=== PATIENT | female | born 1985 | race Caucasian/White ===

== ENCOUNTER 2017-03-04 17:14 | Emergency (ER) | payer SELFPAY ==
[2017-03-04 17:20] VITALS: BP 138/96; BMI 39.1
[2017-03-04] MEDS ORDERED: TORADOL 60 MG VIAL IM ONE (18:23)
--- NOTE | 2017-03-04 18:23 | DR.GENAD ---
HPI - PCP Primary Care Physician: kelli - Complaint/Symptoms Chief Complaint:: patient stated she has been having bottom right tooth ache that has her head hurting. - Source History Provided: Patient - Mode of Arrival Mode of Arrival: Ambulatory - Timing Onset of Chief Complaint: 03/01/17 PMH - PMH Past Medical History: Yes Past Medical History: Hypertension Past Surgical History: Yes Surgical History: , Tonsillectomy - Family History History of Family Medical Conditions: Yes Family Medical History: Diabetes Mellitus, Cancer, [place], Hypertension - Social History Does patient currently use any type of tobacco product: Yes Have you used tobacco products in the last 12 months: Yes Type of Tobacco Use: None How many years tobacco product used: 15 Does any household member use tobacco: Yes Alcohol Use: None Do you use any recreational Drugs:: No Lives With: Family Lives Where: Home - infectious screening In the last 2 months have you had wt loss of >10#?: NO Have you had fever, night sweats or hemotysis?: No Have you traveled outside the country in the last 6 months?: No Isolation: Standard ROS - Review of Systems Eyes: No Symptoms Reported ENTM: See HPI, Loose Teeth Respiratoy: No Symptoms Reported Cardiovascular: No Symptoms Reported Gastrointestinal/Abdominal: No Symptoms Reported Genitourinary: No Symptoms Reported Neurological: No Symptoms Reported Musculoskeletal: No Symptoms Reported Integumentary: No Symptoms Reported Hematologic/Lymphatic: No Symptoms Reported Endocrine: No Symptoms Reported Psychiatric: No Symptoms Reported All Other Systems: Reviewed and Negative PE - Vital Signs Vitals: Temperature 98.6 F Pulse Rate 90 Respiratory Rate 16 Blood Pressure [Left Arm] 127/63 Blood Pressure 138/96 O2 Sat by Pulse Oximetry 100 - General Limitations: No Limitations General Appearance: Alert, In No Apparent Distress - Head Head Exam: Normal Inspection, Atraumatic - Eyes Eye exam: Normal Appearance, PERRL, EOMI - ENT ENT Exam: Normal Exam External Ear Exam: Normal External Inspection TM/Canal Exam: Bilateral Normal Nose Exam: Normal Nose Exam Mouth Exam: Other (Tooth pain #30, cavity) Throat Exam: Normal Inspection - Neck Neck Exam: Normal Inspection, Full ROM - Chest Chest Inspection: Normal Inspection, Symmetric Chest Wall Rise - Respiratory Respiratory Exam: Normal Lung Sounds Bilat Respiratory Exam: Bilateral Clear to Auscultation - Cardiovascular Cardiovascular Exam: Regular Rate, Normal Rhythm - Abdominal Exam Abdominal Exam: Normal Inspection, Normal Bowel Sounds Abdominal Tenderness: negative: RUQ, RLQ, LUQ, LLQ, Epigastrium, Suprapubic, Diffuse, Mild, Moderate, Severe, Other - Extremities Extremities Exam: Normal Inspection - Back Back Exam: Normal Inspection - Neurologic Neurological Exam: Alert, Oriented X3, CN II-XII Intact - Psychiatric Psychiatric Exam: Normal Affect, Normal Mood - Skin Skin Exam: Warm, Dry, Intact - Diagnosis Discharge Problem: Tooth ache - Discharge Plan Condition: Stable - Follow ups/Referrals Follow ups/Referrals: NFD,None [Primary Care Provider] - 3 days - Instructions
[2017-03-04] MEDS ORDERED: TORADOL 60 MG VIAL ONE (18:25)
== END 2017-03-04 18:41 | disposition home or self-care (01) ==
LOC: ER 17:26
DX: K08.89 Other specified disorders of teeth and supporting structures (principal)
CPT/HCPCS: 96372; 99282; J1885

== ENCOUNTER 2017-06-08 16:54 | Emergency (ER) | payer SELFPAY ==
[2017-06-08 17:00] VITALS: BP 143/61; BMI 40.8
--- NOTE | 2017-06-08 18:33 | DR.GENAD ---
HPI - PCP Primary Care Physician: NFD - Complaint/Symptoms Chief Complaint Doctors Comments: [place] patient while in [place] went to the ED was found to be , estimated gestation age of 5 wks at the time. Patient reports that on yesterday started bleeding and today pasted a large blood clot. LMP 12/3-10/03 Normal. She is a a 0.5ppd smoker, denies alcohol. Patient has no OB physician Chief Complaint:: "I found out that I was last week. They thought that I was around 5 weeks then. However they think that I lost it due to my hormone level. Yesterday I started bleeding and today I passed a big blood clot but I still have a lot of pressure." - Source History Provided: Patient - Mode of Arrival Mode of Arrival: Ambulatory - Timing Onset of Chief Complaint: 06/07/17 PMH - PMH Past Medical History: Yes Past Medical History: Hypertension Past Surgical History: Yes Surgical History: , Tonsillectomy - Family History History of Family Medical Conditions: Yes Family Medical History: Diabetes Mellitus, Cancer, [place], Hypertension - Social History Does patient currently use any type of tobacco product: Yes Have you used tobacco products in the last 12 months: Yes Type of Tobacco Use: Cigarettes Does any household member use tobacco: Yes Alcohol Use: None Do you use any recreational Drugs:: No Lives With: Family Lives Where: Home - infectious screening In the last 2 months have you had wt loss of >10#?: NO Have you had fever, night sweats or hemotysis?: No Have you traveled outside the country in the last 6 months?: No Isolation: Standard ROS - Review of Systems Eyes: No Symptoms Reported ENTM: No Symptoms Reported Respiratoy: No Symptoms Reported Cardiovascular: No Symptoms Reported Gastrointestinal/Abdominal: No Symptoms Reported Genitourinary: No Symptoms Reported Neurological: No Symptoms Reported Musculoskeletal: No Symptoms Reported Integumentary: No Symptoms Reported Hematologic/Lymphatic: No Symptoms Reported Endocrine: No Symptoms Reported Psychiatric: No Symptoms Reported All Other Systems: Reviewed and Negative PE - Vital Signs Vitals: Temperature 97.7 F Pulse Rate 85 Respiratory Rate 20 Blood Pressure [Left Arm] 127/63 Blood Pressure 143/61 O2 Sat by Pulse Oximetry 100 - General Limitations: No Limitations General Appearance: In No Apparent Distress - Head Head Exam: Normal Inspection, Atraumatic - Eyes Eye exam: Normal Appearance, PERRL, EOMI - ENT ENT Exam: Normal Exam External Ear Exam: Normal External Inspection TM/Canal Exam: Bilateral Normal Nose Exam: Normal Nose Exam Mouth Exam: Normal Inspection Throat Exam: Normal Inspection - Neck Neck Exam: Normal Inspection, Full ROM - Chest Chest Inspection: Normal Inspection - Respiratory Respiratory Exam: Normal Lung Sounds Bilat Respiratory Exam: Bilateral Clear to Auscultation - Cardiovascular Cardiovascular Exam: Regular Rate, Normal Rhythm - Abdominal Exam Abdominal Exam: Normal Inspection, Normal Bowel Sounds Abdominal Tenderness: negative: RUQ, RLQ, LUQ, LLQ, Epigastrium, Suprapubic, Diffuse, Mild, Moderate, Severe, Other - Extremities Extremities Exam: Normal Inspection, Full ROM - Back Back Exam: Normal Inspection, Full ROM - Neurologic Neurological Exam: Alert, Oriented X3, CN II-XII Intact - Psychiatric Psychiatric Exam: Normal Affect, Normal Mood - Skin Skin Exam: Warm, Dry, Intact Course - Reevaluation 1st: Unchanged ROR - Labs Reviewed Laboratory Results Reviewed?: Yes (UA: 5+bld,2+leuk,wbc 5-10, RBC 15-25; Negative test) Result Diagrams: 06/08/17 18:41 06/08/17 18:41 Laboratory: WBC 9.5 X10^3/uL (3.6-10.0) 18 18:41 RBC 4.72 X10^6/uL (3.5-5.4) 18 18:41 Hgb 12.9 g/dL (12.0-16.0) 06/08/17 18:41 Hct 38.6 % (36.0-47.0) 06/08/17 18:41 MCV 81.8 fL (80.0-100.0) 06/08/17 18:41 MCH 27.4 pg (27.0-34.0) 06/08/17 18:41 MCHC 33.5 g/dL (33.0-35.0) 06/08/17 18:41 RDW 16.7 % (11.6-16.5) H 06/08/17 18:41 Plt Count 514 X10^3/uL (150.0-450.0) H 06/08/17 18:41 MPV 6.6 fL (7.4-11.0) L 06/08/17 18:41 Neut % 67.6 % (42.0-75.0) 06/08/17 18:41 Lymph % 27.8 % (21.0-51.0) 06/08/17 18:41 [place] % 2.9 % (0.0-13.0) 06/08/17 18:41 Eos % 1.1 % (0.9-2.9) 06/08/17 18:41 Baso % 0.6 % (0.2-1.0) 06/08/17 18:41 Neut # 6.4 x10^3/uL (2.2-4.8) H 06/08/17 18:41 Lymph # 2.6 X10^3/uL (1.3-2.9) 06/08/17 18:41 [place] # 0.3 x10^3/uL (0.3-0.8) 06/08/17 18:41 Eos # 0.1 x10^3/uL (0.0-0.2) 06/08/17 18:41 Baso # 0.1 X10^3/uL (0.0-0.1) 06/08/17 18:41 Absolute Nucleated RBC 0.0 /100WBC 06/08/17 18:41 INR Target Range - 06/08/17 18:41 INR 0.96 (0.8-1.3) 06/08/17 18:41 PTT 25.7 SECONDS (22.9-36.5) 06/08/17 18:41 PTT Comment - 06/08/17 18:41 Sodium 143 mmol/L (136-145) 06/08/17 18:41 Corrected Sodium TNP 06/08/17 18:41 Potassium 4.3 mmol/L (3.5-5.1) 06/08/17 18:41 Chloride 107 mmol/L (98-107) 06/08/17 18:41 Carbon Dioxide 26.5 mmol/L (21-32) 06/08/17 18:41 BUN 18 mg/dL (7-18) 06/08/17 18:41 Creatinine 0.73 mg/dL (0.55-1.02) 06/08/17 18:41 Est GFR (MDRD) Af Amer > 60 (>60) 06/08/17 18:41 Est GFR (MDRD) Non-Af > 60 (>60) 06/08/17 18:41 Glucose 100 mg/dL (65-99) H 06/08/17 18:41 Calcium 9.0 mg/dL (8.5-10.1) 06/08/17 18:41 Corrected Calcium TNP 06/08/17 18:41 Total Bilirubin 0.10 mg/dL (0.2-1.0) L 06/08/17 18:41 AST 15 Units/L (15-37) 06/08/17 18:41 ALT 28 Units/L (12-78) 06/08/17 18:41 Alkaline Phosphatase 92 Units/L (46-116) 06/08/17 18:41 Total Protein 8.0 g/dL (6.4-8.2) 06/08/17 18:41 Albumin 3.5 g/dL (3.4-5.0) 06/08/17 18:41 Globulin 4.5 g/dL (2.5-4.5) 06/08/17 18:41 Albumin/Globulin Ratio 0.8 Ratio (1.1-2.1) L 06/08/17 18:41 HCG, Qual Negative <10 mIU/mL 06/08/17 18:41 Specimen Type Clean catch urine 06/08/17 18:46 Urine Color Yellow (YELLOW) 06/08/17 18:46 Urine Appearance Slightly hazy (CLEAR) 06/08/17 18:46 Urine pH 6.5 (5.0 - 8.0) 06/08/17 18:46 Ur Specific [place] 1.010 (1.000-1.030) 06/08/17 18:46 Urine Protein 1+ (NEGATIVE) 06/08/17 18:46 Urine Glucose (UA) Negative (NEGATIVE) 06/08/17 18:46 Urine Ketones Negative (NEGATIVE) 06/08/17 18:46 Urine Occult Blood 5+ (NEGATIVE) 06/08/17 18:46 Urine Nitrite Negative (NEGATIVE) 06/08/17 18:46 Urine Bilirubin Negative (NEGATIVE) 06/08/17 18:46 Urine Urobilinogen Normal (NORMAL) 06/08/17 18:46 Ur Leukocyte Esterase 2+ (NEGATIVE) 06/08/17 18:46 Urine RBC 15 - 25 /HPF (NEGATIVE) 06/08/17 18:46 Urine WBC 05 - 10 /HPF (NEGATIVE) 06/08/17 18:46 Ur Squamous Epith Cells Moderate /HPF (NEGATIVE) 06/08/17 18:46 Amorphous Sediment Trace /HPF (NEGATIVE) 06/08/17 18:46 Urine Bacteria Trace /HPF (NEGATIVE) 06/08/17 18:46 Ur Culture Indicated? Yes/culture set up 06/08/17 18:46 - Diagnosis Discharge Problem: Urinary tract infection Qualifiers: Urinary tract infection type: acute cystitis Hematuria presence: with hematuria Qualified Code(s): N30.01 - Acute cystitis with hematuria - Discharge Plan Condition: Stable - Follow ups/Referrals Follow ups/Referrals: NFD,None [Primary Care Provider] - 3 days - Instructions
[2017-06-08 18:54] LABS: BILIRUBIN,URINE NEGATIVE (NEGATIVE); BLOOD/HEMOGLOBIN,URINE 5+ (NEGATIVE); GLUCOSE, URINE NEGATIVE (NEGATIVE); KETONES,URINE NEGATIVE (NEGATIVE); LEUKOCYTE ESTERASE ,URINE 2+ (NEGATIVE); NITRITES,URINE NEGATIVE (NEGATIVE); PH,URINE 6.5 (5.0 - 8.0); PROTEIN,URINE 1+ (NEGATIVE); UROBILINOGEN,URINE NORMAL (NORMAL)
[2017-06-08 18:54] LABS: BASOPHILS # (AUTO) 0.1 X10^3/uL (0.0-0.1); BASOPHILS % (AUTO) 0.6 % (0.2-1.0); EOSINOPHILS # (AUTO) 0.1 x10^3/uL (0.0-0.2); EOSINOPHILS % (AUTO) 1.1 % (0.9-2.9); HEMATOCRIT 38.6 % (36.0-47.0); HEMOGLOBIN 12.9 g/dL (12.0-16.0); LYMPHOCYTES # (AUTO) 2.6 X10^3/uL (1.3-2.9); LYMPHOCYTES % (AUTO) 27.8 % (21.0-51.0); MEAN CORPUSCULAR HEMOGLOBIN 27.4 pg (27.0-34.0); MEAN CORPUSCULAR HGB CONC 33.5 g/dL (33.0-35.0); MEAN CORPUSCULAR VOLUME 81.8 fL (80.0-100.0); MEAN PLATELET VOLUME 6.6 fL (7.4-11.0); MONOCYTES # (AUTO) 0.3 x10^3/uL (0.3-0.8); MONOCYTES % (AUTO) 2.9 % (0.0-13.0); NEUTROPHILS # (AUTO) 6.4 x10^3/uL (2.2-4.8); NEUTROPHILS % (AUTO) 67.6 % (42.0-75.0); PLATELET COUNT 514 X10^3/uL (150.0-450.0); RED BLOOD COUNT 4.72 X10^6/uL (3.5-5.4); RED CELL DISTRIBUTION WIDTH 16.7 % (11.6-16.5); WHITE BLOOD COUNT 9.5 X10^3/uL (3.6-10.0)
[2017-06-08 18:58] LABS: APPEARANCE,URINE SLIGHTLY HAZY (CLEAR); COLOR,URINE YELLOW (YELLOW)
[2017-06-08 19:00] LABS: SERUM PREGNANCY TEST, QUAL NEGATIVE <10 mIU/mL
[2017-06-08 19:03] LABS: ALANINE AMINOTRANSFERASE 28 Units/L (12-78); ALBUMIN 3.5 g/dL (3.4-5.0); ALKALINE PHOSPHATASE 92 Units/L (46-116); ASPARTATE AMINO TRANSFERASE 15 Units/L (15-37); BLOOD UREA NITROGEN 18 mg/dL (7-18); CARBON DIOXIDE 26.5 mmol/L (21-32); CHLORIDE 107 mmol/L (98-107); CREATININE 0.73 mg/dL (0.55-1.02); SODIUM 143 mmol/L (136-145); eGFR BLACK RACES > 60 (>60); eGFR NON BLACK RACES > 60 (>60)
[2017-06-08 19:10] LABS: AMORPHOUS SEDIMENT,UR TRACE /HPF (NEGATIVE); BACTERIA,URINE TRACE /HPF (NEGATIVE); RBC,URINE 15 - 25 /HPF (NEGATIVE); SQUAMOUS EPITHELIAL CELL,UR MODERATE /HPF (NEGATIVE)
== END 2017-06-08 20:01 | disposition home or self-care (01) ==
LOC: ER 17:02
DX: N30.01 Acute cystitis with hematuria (principal)
CPT/HCPCS: 36415; 80053; 81001; 84703; 85025; 85610; 85730; 87086; 99282